=== PATIENT | male | born 1960 ===

== ENCOUNTER 2022-01-29 20:51 | Observation (INO) ==
[2022-01-29 22:10] LABS: ABS Lymphocytes 0.7 10^3/ul (1.0-4.8); ABS Monocytes 0.4 10^3/ul (0-0.8); ABS Neutrophils 5.5 10^3/ul (1.5-7.7); Eosinophil % 0.5 %; Hematocrit 45 % (42-52); Lymphocyte % 10.2 %; Mean Corpuscular HGB Conc 33 g/dL (31-36); Mean Corpuscular Hemoglobin 31 pg (27-31); Mean Corpuscular Volume 94 fL (80-94); Mean Platelet Volume 10.4 fL (7.4-10.4); Nucleated Red Blood Cells % 0.1; Platelet Count 136 10^3/uL (150-450); Red Blood Count 4.83 10^6 /uL (4.18-5.48); Red Cell Distribution Width 14 % (10-15); White Blood Count 6.6 10^3/uL (3.5-10.8)
[2022-01-29 23:01] LABS: Albumin 4.2 g/dL (3.2-5.2); Albumin/Globulin Ratio 1.6 (1-3); Calcium 9.6 mg/dL (8.6-10.3); Globulin 2.6 g/dL (2-4); Potassium 4.5 mmol/L (3.5-5.0); Total Bilirubin 0.5 mg/dL (0.2-1.0); Total Protein 6.8 g/dL (6.4-8.9); eGFR CKD-EPI 64.7 (>60)
[2022-01-29 23:29] LABS: INR 0.96 (0.86-1.15)
[2022-01-30] MEDS ORDERED: Iohexol 350 (CONTRAST) 500 ML MDV IV ONE (00:13)
[2022-01-30] MEDS ORDERED: Al Hydrox/Mg Hydrox/Simet LIQ 30 ML UDC PO ONE (02:44)
[2022-01-30 04:20] LABS: High Sensitivity Troponin 1 Hr 3 pg/mL (<20)
[2022-01-30] MEDS ORDERED: Ondansetron 4 mg VIAL 2 MG/ML 2 ml VIAL IV PRN (04:45)
[2022-01-30] MEDS ORDERED: NS 0.9% 1000 ml BAG 1,000 ML IV ONE (04:48)
[2022-01-30 14:12] LABS: Calcium 9.7 mg/dL (8.6-10.3); Potassium 4.4 mmol/L (3.5-5.0); eGFR CKD-EPI 80.3 (>60)
[2022-01-30 15:50] VITALS: BP 103/59
== END 2022-01-30 18:00 | disposition home or self-care (01) ==
LOC: ED 20:51 → EDHOLD 20:51 → MEDTELE 01-30 11:35
PROVIDERS: ADMIT Student in an Organized Health Care Education/Training Program; ATTEND Student in an Organized Health Care Education/Training Program